=== PATIENT | female | born 1985 | race Caucasian/White ===

== ENCOUNTER 2017-02-01 13:45 | Emergency (ER) | payer MEDICARE, MEDICAID ==
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
[2017-02-01 14:59] VITALS: BP 96/60
== END 2017-02-01 14:57 | disposition home or self-care (01) ==
LOC: ED 13:45
DX: S63.502A Unspecified sprain of left wrist, initial encounter (principal); W19.XXXA Unspecified fall, initial encounter; Y93.9 Activity, unspecified; Y92.9 Unspecified place or not applicable; Y99.9 Unspecified external cause status
CPT/HCPCS: 99282

== ENCOUNTER 2017-05-25 09:45 | Emergency (ER) | payer MEDICARE, MEDICAID ==
[2017-05-25] MEDS ORDERED: Lidocaine 1%* 5 ML VIAL ONE ×2 (12:19→12:49)
[2017-05-25 14:30] VITALS: BP 96/46
--- NOTE | 2017-05-25 16:46 | PN ---
Progress Note - Progress Note Date of Service: 05/25/17 Note: I preformed I&D of left labial abscess. Wound culture obtained. Used scalpel and 1% local lidocaine. Patient tolerated procedure well. No complications.
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
== END 2017-05-25 14:30 | disposition home or self-care (01) ==
LOC: ED 09:45
DX: L02.416 Cutaneous abscess of left lower limb (principal); F17.210 Nicotine dependence, cigarettes, uncomplicated
CPT/HCPCS: 87070; 87205; 87480; 87491; 87510; 87591; 87640; 87641; 87661; 99282

== ENCOUNTER 2017-11-03 09:09 | Emergency (ER) | payer MEDICARE, MEDICAID ==
[2017-11-03] MEDS ORDERED: Oseltamivir CAP* 75 MG CAP PO ONE (10:07)
--- NOTE | 2017-11-03 10:20 | RAD ---
HISTORY: Cough COMPARISONS: July 29, 2016 VIEWS: 4: Frontal dual-energy and lateral views of the chest. FINDINGS: CARDIOMEDIASTINAL SILHOUETTE: The cardiomediastinal silhouette is normal. ION: The ino are normal. PLEURA: The costophrenic angles are sharp. No pleural abnormalities are noted. LUNG PARENCHYMA: The lungs are clear. ABDOMEN: The upper abdomen is clear. There is no subphrenic gas. BONES AND SOFT TISSUES: No bone or soft tissue abnormalities are noted. OTHER: None. IMPRESSION: NO ACTIVE CARDIOPULMONARY DISEASE.
[2017-11-03 10:24] LABS: ABS Basophils 0.1 10^3/ul (0-0.2); ABS Eosinophils 0.3 10^3/ul (0-0.6); ABS Lymphocytes 2.9 10^3/ul (1.0-4.8); ABS Monocytes 0.4 10^3/ul (0-0.8); ABS Neutrophils 1.8 10^3/ul (1.5-7.7); ABS Nucleated RBC 0 10^3/ul; Eosinophil % 5.7 % (0-6); Hematocrit 40 % (35-47); Hemoglobin 13.7 g/dl (12.0-16.0); Lymphocyte % 52.8 % (25-47); Mean Corpuscular HGB Conc 35 g/dl (31-36); Mean Corpuscular Hemoglobin 31 pg (27-31); Mean Corpuscular Volume 89 fL (80-97); Mean Platelet Volume 9 um3 (7.4-10.4); Nucleated Red Blood Cells % 0.2; Platelet Count 180 10^3/ul (150-450); Red Blood Count 4.43 10^6/ul (4.0-5.4); Red Cell Distribution Width 13 % (10.5-15); White Blood Count 5.4 10^3/ul (3.5-10.8)
[2017-11-03 10:41] LABS: EGFR Non-African American 83.8 (>60)
[2017-11-03 10:48] LABS: Urine Appearance Cloudy; Urine Blood 1+ (Negative); Urine Color Amber; Urine Ketones Negative (Negative); Urine Protein 1+(30 mg/dL) (Negative); Urine Specific Gravity 1.028 (1.010-1.030); Urine Urobilinogen Negative (Negative)
[2017-11-03 11:38] VITALS: BP 103/65
[2017-11-03] MEDS ORDERED: Potassium Chlor TAB* 20 MEQ TAB.ER PO ONE (11:49)
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
== END 2017-11-03 11:34 | disposition home or self-care (01) ==
LOC: ED 09:09
DX: J11.1 Influenza due to unidentified influenza virus with other respiratory manifestations (principal)
CPT/HCPCS: 36415; 71046; 80053; 81003; 81015; 85025; 86140; 87086; 87502; 87651; 99282; A9270-GY

== ENCOUNTER 2018-05-28 08:53 | Emergency (ER) | payer MEDICARE, MEDICAID ==
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
[2018-05-28 09:46] VITALS: BP 114/69
== END 2018-05-28 09:45 | disposition home or self-care (01) ==
LOC: ED 08:53
DX: L25.9 Unspecified contact dermatitis, unspecified cause (principal); R56.9 Unspecified convulsions; F41.9 Anxiety disorder, unspecified; F32.9 Major depressive disorder, single episode, unspecified; Z88.6 Allergy status to analgesic agent; Z88.8 Allergy status to other drugs, medicaments and biological substances; F17.210 Nicotine dependence, cigarettes, uncomplicated
CPT/HCPCS: 99282

== ENCOUNTER 2018-07-31 23:32 | Emergency (ER) | payer MEDICARE, MEDICAID ==
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
[2018-08-01 00:44] VITALS: BP 102/56
== END 2018-08-01 00:43 | disposition home or self-care (01) ==
LOC: ED 23:32
DX: T16.2XXA Foreign body in left ear, initial encounter (principal); X58.XXXA Exposure to other specified factors, initial encounter; Y92.9 Unspecified place or not applicable; F17.210 Nicotine dependence, cigarettes, uncomplicated
CPT/HCPCS: 99282

== ENCOUNTER 2019-01-22 16:21 | Emergency (ER) | payer MEDICARE, MEDICAID ==
[2019-01-22] MEDS ORDERED: metroNIDAZOLE TAB* 250 MG PO ONE (17:53)
[2019-01-22] MEDS ORDERED: Azithromycin TAB* 250 MG PO ONE (17:53)
[2019-01-22] MEDS ORDERED: cefTRIAXone VIAL(*) 250 MG VIAL IM ONE (17:53)
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
[2019-01-22] MEDS ORDERED: Lidocaine 1%* 5 ML VIAL ONE (18:16)
[2019-01-22 18:24] LABS: Urine Appearance Cloudy; Urine Bacteria Absent (Absent); Urine Bilirubin Negative (Negative); Urine Blood 2+ (Negative); Urine Color Yellow; Urine Glucose Negative (Negative); Urine Ketones Negative (Negative); Urine Nitrite Negative (Negative); Urine Protein Negative (Negative); Urine Red Blood Cell 1+(3-5/hpf) (Absent); Urine Squamous Epithelial Cell Present (Absent); Urine Urobilinogen Negative (Negative); Urine White Blood Cell Trace(0-5/hpf) (Absent)
[2019-01-22 18:50] VITALS: BP 96/83
[2019-01-23 13:54] LABS: Neisseria gonorrhoeae (GC) RNA Negative (Negative)
== END 2019-01-22 18:49 | disposition home or self-care (01) ==
LOC: ED 16:21
DX: T74.21XA Adult sexual abuse, confirmed, initial encounter (principal); Y07.03 Male partner, perpetrator of maltreatment and neglect; E03.9 Hypothyroidism, unspecified; R56.9 Unspecified convulsions; F41.9 Anxiety disorder, unspecified; F43.12 Post-traumatic stress disorder, chronic; Z91.5 Personal history of self-harm; F17.210 Nicotine dependence, cigarettes, uncomplicated; F17.290 Nicotine dependence, other tobacco product, uncomplicated; Z90.49 Acquired absence of other specified parts of digestive tract
CPT/HCPCS: 36415; 81003; 81015; 86703; 87086; 87491; 87591; 96365; 99282; A9270-GY; J0696

== ENCOUNTER 2019-04-01 22:57 | Emergency (ER) | payer MEDICARE, MEDICAID ==
[2019-04-01] MEDS ORDERED: Raltegravir* 400 MG TAB PO ONE (23:55)
[2019-04-01] MEDS ORDERED: Tenofovir/Emtricitab 200/300 * TAB PO ONE (23:55)
[2019-04-02 00:12] LABS: ABS Basophils 0.1 10^3/ul (0-0.2); ABS Eosinophils 0.3 10^3/ul (0-0.6); ABS Monocytes 0.5 10^3/ul (0-0.8); ABS Neutrophils 4.4 10^3/ul (1.5-7.7); Eosinophil % 3.5 %; Hematocrit 37 % (35-47); Hemoglobin 12.7 g/dL (12.0-16.0); Lymphocyte % 36.2 %; Mean Corpuscular HGB Conc 34 g/dL (31-36); Mean Corpuscular Hemoglobin 31 pg (27-31); Mean Corpuscular Volume 89 fL (80-97); Mean Platelet Volume 9.5 fL (7.4-10.4); Nucleated Red Blood Cells % 0.1; Platelet Count 219 10^3/uL (150-450); Red Blood Count 4.13 10^6 /uL (3.70-4.87); Red Cell Distribution Width 14 % (10-15); White Blood Count 8.2 10^3/uL (3.5-10.8)
[2019-04-02 00:39] LABS: Albumin 3.9 g/dL (3.2-5.2); Albumin/Globulin Ratio 1.3 (1-3); BUN/Creatinine Ratio 14.8 (8-20); EGFR African American 97.9 (>60); EGFR Non-African American 80.9 (>60); Globulin 2.9 g/dL (2-4); Potassium 3.6 mmol/L (3.5-5.0); Total Bilirubin 0.3 mg/dL (0.2-1.0); Total Protein 6.8 g/dL (6.4-8.9)
[2019-04-02 00:45] LABS: HCG Pregnancy 3.61 mIU/mL
[2019-04-02 00:49] LABS: Urine Appearance Cloudy; Urine Bilirubin Negative (Negative); Urine Blood Negative (Negative); Urine Color Yellow; Urine Glucose Negative (Negative); Urine Ketones Negative (Negative); Urine Nitrite Negative (Negative); Urine Protein Negative (Negative); Urine Specific Gravity 1.018 (1.010-1.030); Urine Urobilinogen Negative (Negative)
[2019-04-02] MEDS ORDERED: Raltegravir* 400 MG TAB PO ONE (01:00)
[2019-04-02] MEDS ORDERED: Tenofovir/Emtricitab 200/300 * TAB PO ONE (01:00)
[2019-04-02 01:07] LABS: Hepatitis B Surface Antigen Negative (Negative)
[2019-04-02 01:07] LABS: HIV 4th Generation Negative (Negative)
[2019-04-02 01:25] LABS: Hepatitis B Surface Ab Not Immune (Immune); Hepatitis C Antibody Negative (Negative)
[2019-04-02] MEDS ORDERED: cefTRIAXone VIAL(*) 250 MG VIAL IM ONE (02:05)
[2019-04-02] MEDS ORDERED: metroNIDAZOLE TAB* 250 MG PO ONE (02:05)
[2019-04-02] MEDS ORDERED: Azithromycin TAB* 250 MG PO ONE (02:05)
[2019-04-02] MEDS ORDERED: Ondansetron ODT TAB* 4 MG PO ONE (02:06)
[2019-04-02 02:25] VITALS: BP 109/61
[2019-04-02 13:28] LABS: Neisseria gonorrhoeae (GC) RNA Negative (Negative)
[2019-04-02 13:43] LABS: Trichomonas vaginalis Result Negative (Negative)
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
== END 2019-04-02 02:09 | disposition home or self-care (01) ==
LOC: ED 22:57
DX: T74.21XA Adult sexual abuse, confirmed, initial encounter (principal); F17.210 Nicotine dependence, cigarettes, uncomplicated; E03.9 Hypothyroidism, unspecified; K21.9 Gastro-esophageal reflux disease without esophagitis
CPT/HCPCS: 36415; 80053; 81003; 84702; 85025; 86706; 86803; 87340; 87389; 87480; 87491; 87510; 87591; 87661; 96372; 99283; A9270-GY; J0696

== ENCOUNTER 2019-07-29 11:32 | Emergency (ER) | payer MEDICARE, MEDICAID ==
[2019-07-29] MEDS ORDERED: Ibuprofen TAB* 600 MG PO ONE (11:59)
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
[2019-07-29 12:36] VITALS: BP 113/81
[2019-07-29] MEDS ORDERED: Lidocaine PATCH 5%* 1 PATCH TRANSDERM SCH (13:00)
[2019-07-29] MEDS ORDERED: Lidocaine Patch REMOVE* 1 NOTE MISC SCH (21:00)
== END 2019-07-29 12:34 | disposition home or self-care (01) ==
LOC: ED 11:32
DX: R07.89 Other chest pain (principal); E03.9 Hypothyroidism, unspecified; K21.9 Gastro-esophageal reflux disease without esophagitis; G40.909 Epilepsy, unspecified, not intractable, without status epilepticus; F17.210 Nicotine dependence, cigarettes, uncomplicated
CPT/HCPCS: 71046; 99282; A9270-GY

== ENCOUNTER 2019-10-08 14:33 | Emergency (ER) | payer MEDICAID, MEDICARE ==
[2019-10-08] MEDS ORDERED: Benzonatate CAP* 100 MG PO ONE (14:57)
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
[2019-10-08 15:23] LABS: Influenza A Molecular NEGATIVE (Negative); Influenza B Molecular NEGATIVE (Negative)
[2019-10-08 16:17] VITALS: BP 100/74
[2019-10-08 17:44] LABS: HIV 4th Generation Nonreactive (Nonreactive)
[2019-10-10 22:04] LABS: C. trach Amplified RNA Negative (Negative); N Gonorr Amplified RNA Negative (Negative); Source THROAT
== END 2019-10-08 16:14 | disposition home or self-care (01) ==
LOC: ED 14:33
DX: J40 Bronchitis, not specified as acute or chronic (principal); J02.9 Acute pharyngitis, unspecified; R05 Cough; R51 Headache; E03.9 Hypothyroidism, unspecified; K21.9 Gastro-esophageal reflux disease without esophagitis; R11.2 Nausea with vomiting, unspecified; Z72.0 Tobacco use
CPT/HCPCS: 36415; 71046; 87389; 87491; 87591; 99283; A9270-GY